=== PATIENT | male | born 1990 | race Caucasian/White ===

== ENCOUNTER 2016-07-16 22:07 | Emergency (ER) | payer BC ==
[2016-07-16] MEDS ORDERED: NO HOME MEDICATION XX (22:22)
[2016-07-16] MEDS ORDERED: TRAMADOL HCL50 M2 PO (23:59)
== END 2016-07-17 00:04 ==
LOC: EDMED 22:07
DX: K08.89 Other specified disorders of teeth and supporting structures (principal)